=== PATIENT | female | born 1975 | race African-American/Black ===

== ENCOUNTER 2019-04-20 07:18 | Emergency (ER) | payer BC ==
[~2019-04-20] VITALS: Ht 162.6 cm; Wt 61.2 kg
[2019-04-20 07:20] VITALS: Ht 162.6 cm; Wt 61.2 kg
[2019-04-20 07:58] LABS: RED CELL DISTRIBUTION WIDTH 19.6 % (11.5-14.5)
[2019-04-20 08:03] LABS: BASOPHIL % 0 % (0-2); PLATELET COUNT 757 x10^3mcL (130-400)
[2019-04-20 08:07] LABS: CALCIUM 8.4 mg/dL (8.5-10.1); CARBON DIOXIDE 22.6 mmol/L (21-32); CHLORIDE SERUM 104 mmol/L (98-107); CREATININE SERUM 0.5 mg/dL (0.6-1.0); GFR1 > 60 mL/min; GLUCOSE SERUM 98 mg/dL (74-106); POTASSIUM SERUM 3.4 mmol/L (3.5-5.1); SODIUM SERUM 139 mmol/L (136-145)
[2019-04-20 08:11] LABS: ALBUMIN 3.5 g/dL (3.4-5.0); ALKALINE PHOSPHATASE 64 U/L (46-116); ALT/SGPT 25 U/L (14-59); AST/SGOT 17 U/L (15-37); BILIRUBIN TOTAL 0.3 mg/dL (0.20-1.00); LIPASE 220 IU/L (73-393); TOTAL PROTEIN, SERUM 7.7 g/dL (6.4-8.2)
[2019-04-20 10:29] LABS: microscopic required? NO
[2019-04-20 11:43] LABS: urine erythrocyte NEGATIVE (NEGATIVE)
[2019-04-20 12:13] LABS: AMPHETAMINE QUAL UR NONE DETECTED (See below)
[2019-04-20 13:00] VITALS: BP 105/57
== END 2019-04-20 13:35 | disposition home or self-care (01) ==
LOC: ED 07:18
PROVIDERS: Emergency Medicine
DX: F12.188 Cannabis abuse with other cannabis-induced disorder (principal); D50.9 Iron deficiency anemia, unspecified; N93.8 Other specified abnormal uterine and vaginal bleeding
CPT/HCPCS: 87804; J1630; J2060; J7030

== ENCOUNTER 2019-07-14 08:35 | Inpatient (IN) | payer BC ==
[~2019-07-14] VITALS: Ht 162.6 cm; Wt 63.7 kg
[2019-07-14 08:38] VITALS: Ht 162.6 cm; Wt 63.7 kg
--- NOTE | 2019-07-14 08:41 | NUR ---
PT BIBA FOR C/O N/V X3DAYS. PT REPORTS TAKING A EDIBLE FROM HER SON CONTIANING MARIJUANA. PT REPORTS NOT ABLE TO KEEP ANY FOOD OR FLUID DOWN. PT IS AAOX4, PAIN IS 8/10 GENRALIZED ABDOMINAL PAIN. PT REPORTS NOT TAKING ANY PAIN MEDS THIS MORNING. PER EMS THEY GAVE ZOFRAN A TOTAL OG 8 MG IN THE FIELD. PT CAME SOILED AND PLACED IN CLEAN UNDERWEAR AND CLOTHING. PT IN BED WITH COMFORTABKLE POSITION. PT PLACED ON CM, CALL LIGHT WITHIN REACH. WAITING MSE.
[2019-07-14 09:17] LABS: CALCIUM 8.9 mg/dL (8.5-10.1); CARBON DIOXIDE 19.2 mmol/L (21-32); CHLORIDE SERUM 103 mmol/L (98-107); CREATININE SERUM 0.7 mg/dL (0.6-1.0); GFR1 > 60 mL/min; GLUCOSE SERUM 153 mg/dL (74-106); POTASSIUM SERUM 3.7 mmol/L (3.5-5.1); SODIUM SERUM 138 mmol/L (136-145)
[2019-07-14 09:21] LABS: ALKALINE PHOSPHATASE 51 U/L (46-116); ALT/SGPT 24 U/L (14-59); AST/SGOT 19 U/L (15-37); BILIRUBIN TOTAL 0.25 mg/dL (0.20-1.00); LIPASE 105 IU/L (73-393); TOTAL PROTEIN, SERUM 7.6 g/dL (6.4-8.2)
[2019-07-14 09:31] LABS: RED CELL DISTRIBUTION WIDTH 25.3 % (11.5-14.5)
--- NOTE | 2019-07-14 10:05 | NUR ---
PT IN BED ASLEEP, BUT AROUSABLE. PER PT REQUEST LIGHTS OFF IN ROOM. PT IS AAOX4. NAD NOTED
[2019-07-14 10:43] LABS: microscopic required? YES; urine erythrocyte NEGATIVE (NEGATIVE)
--- NOTE | 2019-07-14 11:50 | NUR ---
PT LAYING WITH EYES CLOSED AT THIS TIME. VSS AND NO DISTRESS. AWAITING MD REEVAL. WILL CONITNUE TO MONITOR
--- NOTE | 2019-07-14 12:01 | NUR ---
PER MD KRAUSE START PO CHALLENGE
--- NOTE | 2019-07-14 13:00 | NUR ---
PT IN BED ASLEEP, BUT AROUSABLE. NO N/V. PT STATES DECREASE IN PAIN TO 5/10
[2019-07-14 13:10] LABS: BAND NEUTROPHIL 0 % (0-10); MONOCYTE 4 % (0-7); SEGMENTED NEUTROPHILS 90 % (37-75); rbc morphology (normal/abnorm) ABNORMAL (NORMAL)
[2019-07-14 13:12] LABS: burr cell (echinocyte) 1+; ovalocyte/elliptocyte 1+; tear drop cell (dacryocyte) 1+
--- NOTE | 2019-07-14 13:21 | NUR ---
PT TOLERATED PO CHALLENGE WELL. DR KRAUSE AWARE AND WILL PREP PT FOR DC HOME
[2019-07-14 13:40] LABS: PLATELET COUNT 535 x10^3mcL (130-400)
[2019-07-14] MEDS ORDERED: FEOSOL65 M1 PO (14:50)
--- NOTE | 2019-07-14 15:04 | NUR ---
REPORT TO SILVIO WOLFE TO BE TRANSFERRED TO ROOM 202B BY [facility]
[2019-07-14 16:29] VITALS: BP 97/56
--- NOTE | 2019-07-14 17:20 | NUR ---
PT IN BED RESTING. GOT PT STARTED ON FLUIDS NACL 100ML/HR. IV PATENT NO REDNESS OR SWELLING NOTED. PT DENIES PAIN AT THIS TIME. PT HAS NO CONCERNS AT THIS TIME.
--- NOTE | 2019-07-14 19:15 | NUR ---
PT RECEIVED FROM AM NURSE. PT A/O X4, ABLE TO MAKE NEEDS KNOWN. MED-SURG, PT DENIES ANY CP/PRESSURE. PULSES PALPABLE, NO EDEMA PRESENT. BREATHING IS EVEN AND UNLABORED ON RA, PT DENIES SOB, NO RESP DISTRESS NOTED. ABD SOFT AND FLAT, BOWEL TONES ACTIVE X4 QUAD, PT REPORTS EPISODES OF N/V, BUT DENIES ANY AT THIS TIME. CLEAR LIQUID DIET, TOLERATING FAIRLY. VOIDS FREELY, BRP. AMBULATORY W/ STEADY GAIT. SKIN IS WARM, DRY, AND INTACT. PT DENIES HAVING ANY PAIN AT THIS TIME. IVF INFUSING WELL TO LAC, SITE FREE FROM REDNESS OR SWELLING. NO ACUTE DISTRESS OBSERVED. BED IN LOWEST SETTING, SIDE RAILS UP X2, CALL LIGHT WITHIN REACH. WILL CONT TO MONITOR.
[2019-07-14 20:11] VITALS: BP 101/64
--- NOTE | 2019-07-14 20:37 | NUR ---
PT C/O 10/30 ABD AND BACK PAIN, PRN MORPHINE IVP GIVEN PER EMAR. NO ACUTE DISTRESS NOTED. CALL LIGHT WITH WITHIN REACH. WILL CONT TO MONITOR.
--- NOTE | 2019-07-14 22:43 | NUR ---
PT C/O ANXIETY AND REQUESTING ANTI-ANXIETY MEDICATION, PRN ATIVAN IVP GIVEN PER EMAR. NO ACUTE DISTRESS NOTED. WILL CONT TO MONITOR.
[2019-07-15 06:01] VITALS: BP 95/61
[2019-07-15 06:21] LABS: CARBON DIOXIDE 22.2 mmol/L (21-32); CHLORIDE SERUM 109 mmol/L (98-107); CREATININE SERUM 0.5 mg/dL (0.6-1.0); GFR1 > 60 mL/min; GLUCOSE SERUM 90 mg/dL (74-106); POTASSIUM SERUM 3.2 mmol/L (3.5-5.1); SODIUM SERUM 142 mmol/L (136-145)
--- NOTE | 2019-07-15 06:30 | NUR ---
PT SLEPT WELL THROUGHOUT THE EVENING. BREATHING IS EVEN AND UNLABORED, NO RESP DISTRESS NOTED. PT C/O 5/10 ABD PAIN, PRN TORADOL GIVEN PER EMAR. PT CONTINUES ON CLEAR LIQUID DIET, TOLERATING WELL. PT DENIES HAVING ANY EPISODES OF N/V DURING SHIFT. IVF INFUSING WELL TO LAC, SITE WNL. NO ACUTE CHANGES ENCOUNTERED DURING SHIFT. ALL NEEDS MET AND ANTICIPATED. CALL LIGHT WITHIN REACH. WILL ENDORSE CARE TO AM NURSE.
--- NOTE | 2019-07-15 07:30 | NUR ---
PATIENT SLEEPING IN BED, AROUSABLE. NO ACUTE DISTRESS NOTE, DENIES SOB. DENIES N/V AT THIS TIME. DENIES ABD PAIN. BOWEL SOUNDS ACTIVE X4. PATIENT VOIDS FREELY. PATIENT AMBULATORY, NO WEAKNESS NOTED. NS IV INFUSING TO LAC AT 100ML/HR, IV SITE CDI&PATENT.ALL NEEDS MET AT THIS TIME, WILL CONTINUE TO MONITOR.
[2019-07-15 08:04] LABS: PLATELET COUNT 462 x10^3mcL (130-400); RED CELL DISTRIBUTION WIDTH 24.8 % (11.5-14.5)
[2019-07-15 08:09] VITALS: BP 90/58
[2019-07-15] MEDS ORDERED: ZOF4 PO (08:26)
[2019-07-15] MEDS ORDERED: ATIVAN0.5 M1 PO (08:27)
--- NOTE | 2019-07-15 08:30 | NUR ---
MARGUERITE ALEXIS AWARE PATIENT K WAS 3.2, MARGUERITE FLYNN WILL ADD K. WILL FOLLOW UP AND CONTINUE TO MONITOR.
[2019-07-15 09:47] LABS: BAND NEUTROPHIL 0 % (0-10); BASOPHIL 0 % (0-2); MONOCYTE 2 % (0-7); PLATELET MORPHOLOGY PLATELETS INCREASED; SEGMENTED NEUTROPHILS 69 % (37-75)
[2019-07-15 09:48] LABS: rbc morphology (normal/abnorm) ABNORMAL (NORMAL)
[2019-07-15 12:00] VITALS: BP 90/58
[2019-07-15 12:09] VITALS: BP 114/75
--- NOTE | 2019-07-15 12:20 | NUR ---
PATIENT RECEIVED COPY OF DISCHARGE INSTRUCTIONS, PATIENT UNDERSTANDS AND AGREES WITH D/C INSTRUCTIONS AND PLAN OF CARE, INCLUDING MEDICATIONS & FOLLOW UP CARE. ALL QUESTIONS AND CONCERNS ADDRESSED. PATIENT TOOK ALL PERSONAL BELONGINGS HOME. IV TO LAC REMOVED , CATH INTACT. PATIENT REQUESTED TO TAKE HOME [place], PATIENT AWARE PERSONAL INFORMATION IS WRITTEN ON [place] AND IS OKAY WITH RISK. PATIENT TAKEN DOWN WITH WHEELCHAIR BY [employer]NER.
== END 2019-07-15 12:25 | disposition home or self-care (01) | DRG 446 ==
LOC: ED 08:35 → MU 14:08
PROVIDERS: Emergency Medicine; ADMIT Family Medicine
DX: K83.8 Other specified diseases of biliary tract (principal); Z90.49 Acquired absence of other specified parts of digestive tract; D64.9 Anemia, unspecified; D47.3 Essential (hemorrhagic) thrombocythemia; F41.9 Anxiety disorder, unspecified
CPT/HCPCS: C9113; G0378; J1630; J1885; J2060; J2270; J2765; J3490; J7030

== ENCOUNTER 2019-10-15 04:48 | Emergency (ER) | payer BC ==
[~2019-10-15] VITALS: Ht 162.6 cm; Wt 64.9 kg
[~2019-10-15 04:48] MED LIST: ATIVAN0.5 M1 PO; FEOSOL65 M1 PO; ZOF4 PO
[2019-10-15 04:59] VITALS: Ht 162.6 cm; Wt 64.9 kg
[2019-10-15 05:51] VITALS: BP 100/71
== END 2019-10-15 05:51 | disposition home or self-care (01) ==
LOC: ED 04:48
DX: K08.89 Other specified disorders of teeth and supporting structures (principal); N83.209 Unspecified ovarian cyst, unspecified side

== ENCOUNTER 2019-10-21 10:23 | Emergency (ER) | payer BC ==
[~2019-10-21] VITALS: Ht 162.6 cm; Wt 63.6 kg
[2019-10-21 10:29] VITALS: Ht 162.6 cm; Wt 63.6 kg
[2019-10-21 13:35] VITALS: BP 139/86
== END 2019-10-21 13:35 | disposition home or self-care (01) ==
LOC: ED 10:23
DX: K04.7 Periapical abscess without sinus (principal)
CPT/HCPCS: J2001

== ENCOUNTER 2019-10-24 14:56 | Inpatient (IN) | payer BC, SELFPAY ==
[~2019-10-24] VITALS: Ht 165.1 cm; Wt 62.8 kg
[2019-10-24 15:12] VITALS: Ht 165.1 cm; Wt 62.8 kg
--- NOTE | 2019-10-24 15:18 | NUR ---
PT BIB [facility] FROM HOME. PT AAOX4 WITH C/O PERSISTANT N/V X 36 HRS. PT STATES SHE TOOK HER RX MEDICATIONS FOR N/V WITH NO RELIEF OF SYMPTOMS. PT DENIES ANY DIARRHEA/CONSTIPATION, FEVER, RESP ILLNESS OR URINARY PROBLEMS. PT STATES "I TRIED NOT COMING TO THE HOSPITAL, BUT I COULDN'T TAKE IT ANYMORE." PT PLACED ON MONITOR, VS WNL. NO SIGNS OF DISTRESS AT THIS TIME. NO SIGNS OF ACTIVE N/V AT THIS TIME.
[2019-10-24 16:21] LABS: BASOPHIL % 0 % (0-2); PLATELET COUNT 432 x10^3mcL (130-400); RED CELL DISTRIBUTION WIDTH 22.5 % (11.5-14.5)
[2019-10-24 16:35] LABS: rbc morphology (normal/abnorm) ABNORMAL (NORMAL)
--- NOTE | 2019-10-24 16:36 | NUR ---
PT UP TO RESTROOM FOR URINE SAMPLE.
[2019-10-24 16:38] LABS: ovalocyte/elliptocyte 1+; tear drop cell (dacryocyte) 1+
--- NOTE | 2019-10-24 16:42 | NUR ---
PT RESTING BACK IN BED. PT STATING SHE WAS UNABLE TO GIVE URINE SAMPLE AT THIS TIME.
[2019-10-24 16:59] LABS: CALCIUM 8.1 mg/dL (8.5-10.1); CARBON DIOXIDE 26.5 mmol/L (21-32); CHLORIDE SERUM 107 mmol/L (98-107); CREATININE SERUM 0.7 mg/dL (0.6-1.0); GFR1 > 60 mL/min; GLUCOSE SERUM 99 mg/dL (74-106); POTASSIUM SERUM 3.2 mmol/L (3.5-5.1); SODIUM SERUM 142 mmol/L (136-145)
[2019-10-24 17:01] LABS: ALBUMIN 3.7 g/dL (3.4-5.0); ALKALINE PHOSPHATASE 50 U/L (46-116); ALT/SGPT 28 U/L (14-59); AST/SGOT 23 U/L (15-37); BILIRUBIN TOTAL 0.3 mg/dL (0.20-1.00); LIPASE 106 IU/L (73-393); TOTAL PROTEIN, SERUM 7.2 g/dL (6.4-8.2)
--- NOTE | 2019-10-24 19:27 | NUR ---
RECEIVED REPORT FROM WANDA SHEPPARD TO ASSUME PT CARE. PT NOTED RESTING IN BED IN A POSITION OF COMFORT. PT EDUCATED THAT A URINE SAMPLE IS NEEDED FOR PLAN OF CARE. PT VERBALIZED UNDERSTANDING AND STATED "I WILL TRY NOW". PT AMBULATED TO BATHROOM WITH STEADY GAIT NOTED. PT BREATHING E/U, NO S/S OF DISTRESS NOTED.
--- NOTE | 2019-10-24 19:29 | NUR ---
REPORT GIVEN TO CHONG MUÑOZ TO ASSUME CARE OF PT.
--- NOTE | 2019-10-24 19:42 | NUR ---
PT REPORTING 5/10 HEADACHE AT THIS TIME. PT IS REQUESTING TYLENOL. WILL MEDICATE PT PER PRN EMAR ORDER. PT RECEIVED A WARM BLANKET FOR COMFORT.
[2019-10-24 20:27] LABS: UA SPECIFIC GRAVITY >=1.030 (1.005-1.035); microscopic required? YES; urine erythrocyte 1+ (NEGATIVE)
--- NOTE | 2019-10-24 20:31 | NUR ---
REPORT CALLED TO WANDA LINDO TO ASSUME PT CARE. PT GOING TO ROOM 260B
[2019-10-24 20:37] LABS: AMPHETAMINE QUAL UR NONE DETECTED (See below)
--- NOTE | 2019-10-24 20:37 | NUR ---
PT TO BE TRANSFERED TO [facility] [place] [facility] BY KRISTIN TARANGO. PT A&OX4, BREATHING E/U, NO S/S OF DISTRESS NOTED.
--- NOTE | 2019-10-24 20:40 | NUR ---
RECEIVED PT FROM ED VIA [facility], CAME IN DUE TO NAUSEA AND VOMITING. AAOX4. STATED THAT SHE HAS 5/10 HEADACHE. DENIES DIZZINESS. ABLE TO FOLLOW COMMANDS. NO SOB NOTED, LUNG SOUNDS CTA. DENIES CHEST PAIN/PRESSURE. PT VOMITED ON ARRIVAL TO THE FLOOR. PT STILL COMPLAINS OF NAUSEA. LAST BM=10/23/19. STATED THAT SHE HAS 9/10 ABDOMINAL PAIN. ABDOMEN IS SOFT AND ROUND. BOWEL SOUNDS HYPOACTIVE. VOIDS. IV SITE PATENT AND INTACT. SIDE RAILS UPX2. CALL LIGHT ON REACH.
--- NOTE | 2019-10-24 20:44 | NUR ---
PT TRANSFERED TO 260[facility]IA [facility] BY KRISTIN TARANGO WITHOUT INJURY. PT AMBULATED FROM [facility] TO BED 260B WITH STEADY GAIT NOTED. WANDA LINDO TO ASSUME PT CARE.
--- NOTE | 2019-10-24 20:46 | NUR ---
MEDICATED W/ ZOFRAN 4 MG IVP FOR C/O NAUSEA AND VOMITING. PT IS REQUESTING MEDICATION FOR ANXIETY AND SLEEP. DR. PETIT WAS PAGED, WAITING FOR CALLBACK.
[2019-10-24 20:57] VITALS: BP 143/96
--- NOTE | 2019-10-24 21:30 | NUR ---
DR. PETIT MADE AWARE THAT PT C/O ANXIETY AND 9/10 ABDOMINAL PAIN. PT WAS ASKING FOR A MEDICATION FOR SLEEP. WAITING FOR ORDERS.
[2019-10-24 21:44] LABS: TOTAL IRON BINDING CAPACITY 404 ug/dL (250-450)
[2019-10-24 21:45] LABS: IRON 17 ug/dL (50-170)
--- NOTE | 2019-10-24 22:02 | NUR ---
MEDICATED PT W/ TORADOL 30 MG SLOW IVP FOR C/O 9/10 ABDOMINAL PAIN AND 5/10 HEADACHE, ATIVAN 0.5MG SLOW IVP FOR C/O ANXIETY, AND REGLAN 10 MG SLOW IVP FOR C/O NAUSEA AND VOMITING. PT STATED THAT [facility] HAS NOT EXPLAINED TO HER YET ABOUT THE EGD PROCEDURE.
--- NOTE | 2019-10-25 01:12 | NUR ---
PT LYING IN BED, HAS HER EYES CLOSED. NO S/S OF PAIN, SOB AND VOMITING NOTED. CALL LIGHT ON REACH. WILL CONT TO MONITOR
--- NOTE | 2019-10-25 03:19 | NUR ---
C/O SEVERE ANXIETY, MEDICATED W/ ATIVAN 0.5 MG IVP.
[2019-10-25 06:12] VITALS: BP 102/59
--- NOTE | 2019-10-25 07:18 | NUR ---
ENDORSED TO INCOMING NURSE KOTA FOR CONTINUITY OF CARE
--- NOTE | 2019-10-25 07:30 | NUR ---
PT ENDORSE TO ME THIS MORNING LAYING IN BED RESTING AA/O X4 BREATHING EVEN AND UNLABORED ON RA NO ACUTE RESP DISTRESS OR SOB NOTED. MEDSURG/ DENIES ANY CP OR PRESSURE. VOIDS FREELY. AMB. GEN WEAKNESS KNOWS TO CALL FOR ASSIST. BOWEL SOUNDS ACTIVE / PER PT LAST BM 10/22 / DENIES ANY N/V AT THIS TIME. IV TO THE LW INTACT AND PATENT/ INFUSING D51/2 WITH 20 MEQ TOLERATING WELL. CALL LIGHT IN REACH. WILL CONTINUE TO MONITOR.
[2019-10-25 07:54] LABS: BASOPHIL % 0.5 % (0-2); CALCIUM 7.8 mg/dL (8.5-10.1); CARBON DIOXIDE 24.8 mmol/L (21-32); CHLORIDE SERUM 112 mmol/L (98-107); CREATININE SERUM 0.6 mg/dL (0.6-1.0); GFR1 > 60 mL/min; GLUCOSE SERUM 121 mg/dL (74-106); PHOSPHOROUS 2.5 mg/dL (2.5-4.9); POTASSIUM SERUM 3.6 mmol/L (3.5-5.1); SODIUM SERUM 142 mmol/L (136-145)
[2019-10-25 07:55] VITALS: BP 109/72
--- NOTE | 2019-10-25 08:12 | NUR ---
PT REMAINS NPO SINCE MIDNIGHT/ PENDING EGD, REPORT GIVEN TO GI NURSE AND MARA. ADVICE MARA PT WILL NOT SIGN CONSENT UNTIL DR. FELIX SPEAKS TO HER.
[2019-10-25 08:35] LABS: PLATELET COUNT 402 x10^3mcL (130-400); RED CELL DISTRIBUTION WIDTH 22.3 % (11.5-14.5)
--- NOTE | 2019-10-25 08:35 | NUR ---
PT TAKEN TO GI FOR EGD.
--- NOTE | 2019-10-25 08:36 | NUR ---
LAB CALLED H/H . DR HUBER MADE AWARE. ALSO CALLED GI LAB AND ADVICE WANDA TERRY OF H/H RESULT
[2019-10-25 10:16] VITALS: BP 105/68
--- NOTE | 2019-10-25 10:18 | NUR ---
PT BACK FROM GI LAB VS 105/68 (83) HR 96, 97.7 TEMP, 100 RA. RECONNECTED IV TO THE D5 1/2 NS AT 20 MEQ 125ML/HR. WILL CONTINUE TO MONTIOR.
[2019-10-25 11:36] LABS: rbc morphology (normal/abnorm) ABNORMAL (NORMAL)
[2019-10-25 17:10] VITALS: BP 104/58
[2019-10-25 17:35] LABS: PLATELET COUNT 395 x10^3mcL (130-400); RED CELL DISTRIBUTION WIDTH 22.8 % (11.5-14.5)
--- NOTE | 2019-10-25 17:47 | NUR ---
PT FEELING ANXIOUS, MEDICATED PER EMAR. PER DR. HUBER WILL INFUSE IV FERRLECIT FIRST. ONCE COMPLETE AT 1830 WILL START BLOOD TRANSFUSION 1 UNIT PRBC /ONCE COMPLETE DR HUBER WILL PLACE ORDER FOR CBC TO BE COMPLETED.
[2019-10-25 18:09] LABS: BAND NEUTROPHIL 0 % (0-10); BASOPHIL 0 % (0-2); MONOCYTE 11 % (0-7); SEGMENTED NEUTROPHILS 64 % (37-75); rbc morphology (normal/abnorm) ABNORMAL (NORMAL)
[2019-10-25 18:11] LABS: ovalocyte/elliptocyte 1+; tear drop cell (dacryocyte) 1+
--- NOTE | 2019-10-25 19:35 | NUR ---
NO ACUTE CHANGES AT THIS TIME. NO ACUTE RESP DISTRESS OR SOB NOTED. FERRLECIT CURRENTLY INFUSING, ONCE COMPLETE NIGHT RN WILL INFUSE 1 UNIT OF PRBC. PT DENIES ANY DIZZINESS OR DISCOMFORT AT THIS TIME/ VS STABLE. WILL ENDORSE TO INCOMING RN.
[2019-10-25 20:07] VITALS: BP 100/71
[2019-10-26 05:49] VITALS: BP 100/69
[2019-10-26 06:43] LABS: PLATELET COUNT 389 x10^3mcL (130-400)
[2019-10-26 06:50] LABS: BASOPHIL % 0 % (0-2); RED CELL DISTRIBUTION WIDTH 25.4 % (11.5-14.5); rbc morphology (normal/abnorm) ABNORMAL (NORMAL)
[2019-10-26 06:52] LABS: CALCIUM 7.5 mg/dL (8.5-10.1); CARBON DIOXIDE 22.2 mmol/L (21-32); CHLORIDE SERUM 108 mmol/L (98-107); CREATININE SERUM 0.6 mg/dL (0.6-1.0); GFR1 > 60 mL/min; GLUCOSE SERUM 98 mg/dL (74-106); MAGNESIUM 1.8 mg/dL (1.8-2.4); PHOSPHOROUS 1.9 mg/dL (2.5-4.9); POTASSIUM SERUM 3.3 mmol/L (3.5-5.1); SODIUM SERUM 140 mmol/L (136-145)
[2019-10-26 08:32] VITALS: BP 109/74
[2019-10-26] MEDS ORDERED: PROV5 PO (12:10)
[2019-10-26] MEDS ORDERED: FER300 PO (12:11)
[2019-10-26] MEDS ORDERED: ELA25 PO (12:11)
[2019-10-26 15:38] VITALS: BP 109/74
== END 2019-10-26 14:48 | disposition home or self-care (01) | DRG 392 ==
LOC: ED 14:56 → MU 17:47
PROVIDERS: Emergency Medicine; Family Medicine; Internal Medicine Gastroenterology; ADMIT Internal Medicine; ATTEND Internal Medicine
PROC: 0DB68ZX Excision of Stomach, Via Natural or Artificial Opening Endoscopic, Diagnostic (ICD-10-PCS; principal; 2019-10-25 09:00)
PROC: 30233N1 Transfusion of Nonautologous Red Blood Cells into Peripheral Vein, Percutaneous Approach (ICD-10-PCS; 2019-10-25 09:00)
DX: R11.10 Vomiting, unspecified (principal); F12.90 Cannabis use, unspecified, uncomplicated; D50.9 Iron deficiency anemia, unspecified; N83.209 Unspecified ovarian cyst, unspecified side; E87.6 Hypokalemia; N92.0 Excessive and frequent menstruation with regular cycle; D72.829 Elevated white blood cell count, unspecified; T40.7X5A Adverse effect of cannabis (derivatives), initial encounter; Z90.49 Acquired absence of other specified parts of digestive tract; Z79.899 Other long term (current) drug therapy
CPT/HCPCS: 43235; C9113; G0378; J1200; J1610; J1885; J2060; J2250; J2310; J2405; J2765; J2916; J3010; J3480; J3490; J7030; P9016; Q0092

== ENCOUNTER 2020-01-16 03:36 | Emergency (ER) | payer BC ==
[~2020-01-16] VITALS: Ht 162.6 cm; Wt 61.7 kg
[~2020-01-16 03:36] MED LIST changes: +ELA25 PO; +FER300 PO; +PROV5 PO
[2020-01-16 03:47] VITALS: Ht 162.6 cm; Wt 61.7 kg
[2020-01-16 04:21] LABS: BASOPHIL % 0.8 % (0-2)
[2020-01-16 04:23] LABS: RED CELL DISTRIBUTION WIDTH 25.4 % (11.5-14.5)
[2020-01-16 04:26] LABS: PLATELET COUNT 548 x10^3mcL (130-400)
[2020-01-16 04:27] LABS: CALCIUM 8.4 mg/dL (8.5-10.1); CARBON DIOXIDE 27.7 mmol/L (21-32); CHLORIDE SERUM 102 mmol/L (98-107); CREATININE SERUM 0.7 mg/dL (0.6-1.0); GFR1 > 60 mL/min; GLUCOSE SERUM 102 mg/dL (74-106); POTASSIUM SERUM 3.5 mmol/L (3.5-5.1); SODIUM SERUM 136 mmol/L (136-145)
[2020-01-16 04:32] LABS: ALBUMIN 4.1 g/dL (3.4-5.0); ALKALINE PHOSPHATASE 55 U/L (46-116); ALT/SGPT 20 U/L (14-59); AST/SGOT 13 U/L (15-37); BILIRUBIN TOTAL 0.22 mg/dL (0.20-1.00); TOTAL PROTEIN, SERUM 7.5 g/dL (6.4-8.2)
[2020-01-16 06:11] VITALS: BP 111/73
== END 2020-01-16 06:11 | disposition home or self-care (01) ==
LOC: ED 03:36
PROVIDERS: Emergency Medicine
DX: D25.9 Leiomyoma of uterus, unspecified (principal); N83.201 Unspecified ovarian cyst, right side
CPT/HCPCS: J1885; J7030; Q0092

== ENCOUNTER 2020-01-25 07:40 | Emergency (ER) | payer BC ==
[~2020-01-25] VITALS: Ht 162.6 cm; Wt 58.5 kg
[2020-01-25 09:05] LABS: CALCIUM 9.2 mg/dL (8.5-10.1); CARBON DIOXIDE 21.1 mmol/L (21-32); CHLORIDE SERUM 104 mmol/L (98-107); CREATININE SERUM 0.8 mg/dL (0.6-1.0); GFR1 > 60 mL/min; GLUCOSE SERUM 145 mg/dL (74-106); POTASSIUM SERUM 3.8 mmol/L (3.5-5.1); SODIUM SERUM 140 mmol/L (136-145)
[2020-01-25 09:09] LABS: ALBUMIN 4.4 g/dL (3.4-5.0); ALKALINE PHOSPHATASE 65 U/L (46-116); ALT/SGPT 32 U/L (14-59); AST/SGOT 28 U/L (15-37); BILIRUBIN TOTAL 0.42 mg/dL (0.20-1.00); LIPASE 84 IU/L (73-393); TOTAL PROTEIN, SERUM 8.2 g/dL (6.4-8.2)
[2020-01-25 09:18] LABS: BASOPHIL % 0 % (0-2); RED CELL DISTRIBUTION WIDTH 23.3 % (11.5-14.5)
[2020-01-25 10:15] LABS: burr cell (echinocyte) 1+; ovalocyte/elliptocyte 1+; rbc morphology (normal/abnorm) ABNORMAL (NORMAL)
[2020-01-25 10:23] LABS: PLATELET COUNT 585 x10^3mcL (130-400)
[2020-01-25 12:54] VITALS: BP 134/78
== END 2020-01-25 12:54 | disposition home or self-care (01) ==
LOC: ED 07:40
PROVIDERS: Emergency Medicine
DX: K29.70 Gastritis, unspecified, without bleeding (principal); D64.9 Anemia, unspecified; Z98.890 Other specified postprocedural states; Z90.49 Acquired absence of other specified parts of digestive tract
CPT/HCPCS: J2405; J2765; J7030

== ENCOUNTER 2020-04-08 17:55 | Emergency (ER) | payer BC ==
[~2020-04-08] VITALS: Ht 172.7 cm; Wt 68.0 kg
[2020-04-08 18:08] VITALS: Ht 172.7 cm; Wt 68.0 kg
[2020-04-08 18:43] VITALS: BP 109/78
== END 2020-04-08 18:43 | disposition home or self-care (01) ==
LOC: ED 17:55
DX: K02.9 Dental caries, unspecified (principal); Z86.2 Personal history of diseases of the blood and blood-forming organs and certain disorders involving the immune mechanism

== ENCOUNTER 2020-04-10 16:43 | Emergency (ER) | payer BC ==
[~2020-04-10] VITALS: Ht 162.6 cm; Wt 59.0 kg
[2020-04-10 16:55] VITALS: Ht 162.6 cm; Wt 59.0 kg
[2020-04-10 17:20] VITALS: BP 123/65
== END 2020-04-10 17:20 | disposition home or self-care (01) ==
LOC: ED 16:43
DX: K08.89 Other specified disorders of teeth and supporting structures (principal); Z13.9 Encounter for screening, unspecified